=== PATIENT | male | born 1945 ===

== ENCOUNTER 2019-06-22 06:26 | Day surgery (SDC) | payer MEDICARE ==
--- NOTE | 2019-06-22 07:06 | NUR ---
History, Chart, Medications and Allergies reviewed before start of procedure. Patient confirms NPO status and agrees with scheduled surgery. Pre-Op teaching done. Pt verbalizes understanding. PT WITH DIMINISHED LS T/O. NOTED TO HAVE A WET COUGH AT TIMES. REPORTS USED HIS NEBULIZER THIS MORNING. PT C/O PAIN IN HIS TONGUE AFTER BITING HIS TONGUE ABOUT 3 WEEKS AGO.
--- NOTE | 2019-06-22 07:48 | NUR ---
06/22/19 0748 NOY GREEEN History, Chart, Medications and Allergies reviewed before start of procedure.MONITOR INTACT WITH CONTINUOUS PULSE OXIMETRY AND INTERMITTENT BP.3-LEAD EKG REVIEWED WITH PHYSICIAN PRIOR TO START OF PROCEDURE.O2 VIA N/C INTACT THROUGHOUT SEDATION/PROCEDURE. Patient confirms NPO status and agrees with scheduled surgery.
--- NOTE | 2019-06-22 10:55 | NUR ---
Discharge instructions reviewed with patient. Patient verbalizes understanding. Copy given to patient to take home. Esthela po well. LS improved post duoneb, remains coarse t/o, but improved. Discharged via wheelchair to private car for ride home.
== END 2019-06-22 23:57 | disposition home or self-care (01) ==
LOC: ORSCMMR 06:26 → ORD 07:30 → ORSCMMR 23:57
PROVIDERS: Internal Medicine Critical Care Medicine
PROC: 0B9K8ZX Drainage of Right Lung, Via Natural or Artificial Opening Endoscopic, Diagnostic (ICD-10-PCS; principal; 2019-06-22 07:30)
DX: J98.11 Atelectasis (principal); I10 Essential (primary) hypertension; Z86.73 Personal history of transient ischemic attack (TIA), and cerebral infarction without residual deficits; F17.210 Nicotine dependence, cigarettes, uncomplicated; J44.9 Chronic obstructive pulmonary disease, unspecified; Z79.899 Other long term (current) drug therapy; Z79.82 Long term (current) use of aspirin
CPT/HCPCS: 71045; 87070; 87077; 87186; 87205; J2250; J3010; J7120